=== PATIENT | male | born 2000 | race Caucasian/White ===

== ENCOUNTER 2020-07-09 14:39 | Emergency (ER) | payer BC ==
[~2020-07-09] VITALS: Ht 157.5 cm; Wt 54.4 kg
--- NOTE | 2020-07-09 14:56 | NUR ---
AMBULATED TO BED 9
[2020-07-09 15:02] VITALS: BP 143/67
--- NOTE | 2020-07-09 15:05 | NUR ---
PATIENT PRESENTS TO ED WITH c/o cough, sob and elevated hr. . PT STATES prior history of covid. DENIES N/V/D; SKIN IS PINK/WARM/DRY; AAOX4 WITH EVEN AND STEADY GAIT; LUNGS CLEAR BL; HR EVEN AND REGULAR; PT DENIES ANY FEVER, CP, SOB, OR COUGH AT THIS TIME; PATIENT STATES PAIN OF 4/10 when coughing AT THIS TIME; VSS; PATIENT POSITIONED FOR COMFORT; HOB ELEVATED; BEDRAILS UP X2; BED DOWN. ER MD MADE AWARE OF PT STATUS.
[2020-07-09 15:53] LABS: BASOPHILS # (AUTO) 0.1 K/uL (0.00-0.22); BASOPHILS % (AUTO) 0.9 % (0.0-2.0); EOSINOPHILS # (AUTO) 0.1 K/uL (0-0.4); EOSINOPHILS % (AUTO) 1.7 % (0.0-4.0); HEMOGLOBIN 15.5 g/dL (12.0-18.0); LYMPHOCYTES # (AUTO) 2.6 K/uL (2.0-11.5); LYMPHOCYTES % (AUTO) 32.1 % (20.5-51.1); MEAN CORPUSCULAR HEMOGLOBIN 30 pg (27-31); MEAN CORPUSCULAR HGB CONC 35 g/dL (33-37); MONOCYTES # (AUTO) 0.7 K/uL (0.8-1.0); MONOCYTES % (AUTO) 8.3 % (1.7-9.3); NEUTROPHILS # (AUTO) 4.7 K/uL (1.8-7.7); PLATELET COUNT (AUTO) 275 K/uL (140-450); RED BLOOD CELL COUNT(AUTO) 5.17 MIL/uL (4.20-6.10); RED CELL DISTRIBUTION WIDTH 12.6 % (11.6-13.7); WHITE BLOOD COUNT (AUTO) 8.2 K/uL (4.8-10.8)
--- NOTE | 2020-07-09 16:10 | NUR ---
20g sl established consent signed for ct angiography
[2020-07-09 16:15] LABS: ALBUMIN 4.4 g/dL (3.4-5.0); ANION GAP 20.1 (8-16); CARBON DIOXIDE 20.8 mmol/L (21-32); CREATININE 1.1 mg/dL (0.6-1.3); POTASSIUM 3.9 mmol/L (3.5-5.1); THYROID STIMULATING HORMONE 0.57 uIU/mL (0.34-3.74); TOTAL BILIRUBIN 0.4 mg/dL (0.0-1.0)
--- NOTE | 2020-07-09 16:53 | NUR ---
PT BACK FROM CT AND PLACED IN BED 9.
--- NOTE | 2020-07-09 17:35 | NUR ---
RESTING COMFORTABLY WITH EYES OPEN. RESPIRATIONS ARE NOW REGULAR AND UNLABORED. AWAITING RE-EVAL AND DISPOSITION.
[2020-07-09 18:51] VITALS: BP 143/67
--- NOTE | 2020-07-09 18:52 | NUR ---
Patient discharged with v/s stable. Written and verbal after care instructions given and explained. Patient verbalized understanding. Ambulatory with steady gait. All questions addressed prior to discharge. Advised to follow up with PMD. COPIES OF EXAM RESULTS IN PATIENTS POSESSION
== END 2020-07-09 18:51 | disposition home or self-care (01) ==
LOC: MED 14:39
DX: R06.02 Shortness of breath (principal)
CPT/HCPCS: 36415; 71275; 80053; 84443; 84484; 85025; 93005; 99285; Q9967

== ENCOUNTER 2021-07-25 13:55 | Emergency (ER) | payer BC, MEDICAID ==
[~2021-07-25] VITALS: Ht 157.5 cm; Wt 51.4 kg
[2021-07-25 14:03] VITALS: BP 151/88
--- NOTE | 2021-07-25 14:12 | NUR ---
PT AMB TO BED 7.
--- NOTE | 2021-07-25 14:19 | NUR ---
20YO M C/O PALPITATIONS AND SOB AFTER STARTING LEXAPRO FOR ANXIETY 3 DAYS AGO. PT DENIES CHEST PAIN. DENIES NUMBNESS/TINGLING. PT DENIES FLU SYMPTOMS. IN ED, PT NOT IN RESPIRATORY DISTRESS. PT TACHYCARDIC AT 131 BPM. CLEAR BREATH SOUNDS. PT POSITIONED COMFORTABLY IN BED WITH 2 SIDERAILS UP. ERMD MADE AWARE OF PT STATUS. PMH: COVID (FEBRUARY 2020), ANXIETY MEDS: SPIRIVA, MOTELUKAST (FOR SOB POST-COVID), LEXAPRO ALLERGY: PREDNISONE
[2021-07-25] MEDS ORDERED: LORazepam 1 MG TAB PO ONE (14:25)
[2021-07-25 16:11] VITALS: BP 151/88
--- NOTE | 2021-07-25 16:11 | NUR ---
Patient discharged with v/s stable. Written and verbal after care instructions given and explained. Patient verbalized understanding. Ambulatory with steady gait. All questions addressed prior to discharge. Advised to follow up with PMD.
== END 2021-07-25 16:11 | disposition home or self-care (01) ==
LOC: MED 13:55
DX: R00.0 Tachycardia, unspecified (principal); F41.9 Anxiety disorder, unspecified; Z88.8 Allergy status to other drugs, medicaments and biological substances
CPT/HCPCS: 93005; 99283

== ENCOUNTER 2021-09-22 08:32 | Emergency (ER) | payer OTHER, MEDICAID ==
[~2021-09-22] VITALS: Ht 157.5 cm; Wt 49.9 kg
[2021-09-22 08:49] VITALS: BP 119/75
[2021-09-22 11:49] VITALS: BP 119/75
== END 2021-09-22 11:50 | disposition home or self-care (01) ==
LOC: MED 08:32
DX: U07.1 COVID-19 (principal)
CPT/HCPCS: 71045; 93005; 99283

== ENCOUNTER 2021-12-17 12:10 | Emergency (ER) | payer MEDICAID, OTHER ==
[~2021-12-17] VITALS: Ht 157.5 cm; Wt 49.9 kg
[2021-12-17 12:17] VITALS: BP 118/66
--- NOTE | 2021-12-17 12:20 | NUR ---
PT AMBULATED TO ER BED 9 WITH A STEADY GAIT.
--- NOTE | 2021-12-17 12:26 | NUR ---
DR. FERNANDEZ AT PT BEDSIDE FOR FURTHER EVALUATION.
--- NOTE | 2021-12-17 12:42 | NUR ---
PT TAKEN TO XR VIA W/C.
--- NOTE | 2021-12-17 12:43 | NUR ---
21 Y/O MALE C/O URINARY RETENTION, DYSURIA, AND LOW BACK PAIN X1WEEK. PT STATES HE WAS SEEN BY PCP AND PRESCRIBED BACTRIM. DENIES FEVER/CHILLS. DENIES N/V/D. DENIES PMH ALLERGIES: PREDNISONE
--- NOTE | 2021-12-17 12:59 | NUR ---
PT TAKEN TO ER BED 9 VIA W/C.
[2021-12-17 13:05] LABS: APPEARANCE,URINE CLEAR (CLEAR); BILIRUBIN,URINE NEGATIVE (NEGATIVE); BLOOD, URINE NEGATIVE (NEGATIVE); COLOR,URINE YELLOW (YELLOW); LEUKOCYTE ESTERASE ,URINE NEGATIVE (NEGATIVE); NITRITE, URINE NEGATIVE (NEGATIVE); UGLUCOSE NEGATIVE (NEGATIVE)
--- NOTE | 2021-12-17 13:08 | NUR ---
PT BLADDER SCANNED, 100ML RESIDUAL S/P VOID, MADE AWARE.
[2021-12-17 13:55] VITALS: BP 122/73
--- NOTE | 2021-12-17 13:56 | NUR ---
Patient discharged with v/s stable. Written and verbal after care instructions given FOR URINARY FREQUENCY AND LOWER BACK SPRAIN and explained. Patient verbalized understanding. Ambulatory with steady gait. All questions addressed prior to discharge. Advised to follow up with PMD.
== END 2021-12-17 13:56 | disposition home or self-care (01) ==
LOC: MED 12:10
DX: R35.0 Frequency of micturition (principal); R39.11 Hesitancy of micturition; M54.50 Low back pain, unspecified; Z88.8 Allergy status to other drugs, medicaments and biological substances
CPT/HCPCS: 36415; 72072; 72110; 81003; 82948; 87491; 99284

== ENCOUNTER 2022-03-26 15:13 | Emergency (ER) | payer MEDICAID ==
[~2022-03-26] VITALS: Ht 157.5 cm; Wt 50.8 kg
[2022-03-26 15:17] VITALS: BP 128/84
[2022-03-26 16:16] LABS: BASOPHILS # (AUTO) 0.1 K/uL (0.00-0.22); BASOPHILS % (AUTO) 0.7 % (0.0-2.0); EOSINOPHILS # (AUTO) 0.1 K/uL (0-0.4); EOSINOPHILS % (AUTO) 0.8 % (0.0-4.0); HEMATOCRIT 45.2 % (36-52); HEMOGLOBIN 15.3 g/dL (12.0-18.0); LYMPHOCYTES # (AUTO) 1.4 K/uL (2.0-11.5); LYMPHOCYTES % (AUTO) 11.6 % (20.5-51.1); MEAN CORPUSCULAR HEMOGLOBIN 30 pg (27-31); MEAN CORPUSCULAR HGB CONC 34 g/dL (33-37); MEAN CORPUSCULAR VOLUME 87.9 fL (80-94); MONOCYTES # (AUTO) 0.6 K/uL (0.8-1.0); MONOCYTES % (AUTO) 4.9 % (1.7-9.3); NEUTROPHILS # (AUTO) 9.9 K/uL (1.8-7.7); PLATELET COUNT (AUTO) 206 K/uL (140-450); RED BLOOD CELL COUNT(AUTO) 5.14 MIL/uL (4.20-6.10); WHITE BLOOD COUNT (AUTO) 12.1 K/uL (4.8-10.8)
[2022-03-26 16:30] LABS: ALBUMIN 4.5 g/dL (3.4-5.0); ANION GAP 13.5 (8-16); ASPARTATE AMINOTRANSFERASE 18 U/L (15-37); CARBON DIOXIDE 27.4 mmol/L (21-32); CHLORIDE 106 mmol/L (98-107); GFR ARICAN-AMERICAN 119 mL/min (>90); GLUCOSE 103 mg/dL (74-106); POTASSIUM 3.9 mmol/L (3.5-5.1); SODIUM SERUM 143 mmol/L (136-145); TOTAL BILIRUBIN 0.5 mg/dL (0.0-1.0); UREA NITROGEN, BLOOD 12 mg/dL (7-18)
--- NOTE | 2022-03-26 17:00 | NUR ---
21/M C/O CP AND SOB SINCE THIS MORNING, STATES CHRONIC SOB SINCE HAVING COVID IN 2019, REPORTS HE USES INHALERS BUT HAS NOT EXPERIENCED RELIEF TODAY. STATES HIS PCP IS CURRENTLY WEANING HIM OFF PROPANOLOL D/T TACHYCARDIA. PMH: TACHYCARDIA, ACID REFLUX ALLERGIES: PREDNISONE, PENICILLINS
--- NOTE | 2022-03-26 17:19 | NUR ---
DR KING SPEAKING TO PT SIDE
[2022-03-26 17:43] VITALS: BP 111/74
--- NOTE | 2022-03-26 17:43 | NUR ---
Patient discharged with v/s stable. Written and verbal after care instructions given ABOUT NON-SPECIFIC CHEST PAIN and explained. Patient verbalized understanding. Ambulatory with steady gait. All questions addressed prior to discharge. Advised to follow up with PMD.
== END 2022-03-26 17:43 | disposition home or self-care (01) ==
LOC: MED 15:13
DX: R07.89 Other chest pain (principal); R06.02 Shortness of breath
CPT/HCPCS: 36415; 71045; 80053; 84484; 85025; 93005; 99285

== ENCOUNTER 2022-11-26 10:52 | Emergency (ER) | payer MEDICAID ==
[~2022-11-26] VITALS: Ht 157.5 cm; Wt 52.2 kg
[2022-11-26 11:21] VITALS: BP 130/81
[2022-11-26] MEDS ORDERED: SUD30 PO (13:01)
[2022-11-26] MEDS ORDERED: IBUP-2213 PO (13:01)
[2022-11-26] MEDS ORDERED: PROM118S5 PO (13:01)
[2022-11-26 14:18] VITALS: BP 110/70
== END 2022-11-26 14:18 | disposition home or self-care (01) ==
LOC: MED 10:52
DX: M94.0 Chondrocostal junction syndrome [Tietze] (principal); Z79.899 Other long term (current) drug therapy
CPT/HCPCS: 93005; 99283